=== PATIENT | male | born 1985 | race Two or more races ===

== ENCOUNTER 2025-06-03 13:52 | Outpatient (CLI) | payer BC | END 2025-06-03 13:53 | disposition home or self-care (01) | LOC: CSHCP 13:52 | PROVIDERS: ATTEND Internal Medicine | DX: J44.89 Other specified chronic obstructive pulmonary disease (principal); J45.20 Mild intermittent asthma, uncomplicated | CPT/HCPCS: 94060; 94664; 94726; 94729; 94760 ==

== ENCOUNTER 2025-06-17 15:11 | Outpatient (CLI) | payer BC | END 2025-06-17 15:12 | disposition home or self-care (01) | LOC: CSHCT 15:11 | PROVIDERS: ATTEND Internal Medicine | DX: J98.4 Other disorders of lung (principal) | CPT/HCPCS: 71250 ==